=== PATIENT | female | born 1995 | race Caucasian/White ===

== ENCOUNTER 2018-04-09 17:56 | Inpatient (IN) ==
[2018-04-09] MEDS ORDERED: Sod Chloride 0.9% Inj 1,000 ML IV.CONT PRN (19:14)
[2018-04-09] MEDS ORDERED: fentaNYL Citrate Inj 100 MCG/2 ML Ampul IV.PUSH PRN ×2 (19:14)
[2018-04-09] MEDS ORDERED: Oxytocin 30 Units/500ml Premix 30 UNITS/500 ML BAG IV.SIG ONE (19:14)
[2018-04-09] MEDS ORDERED: Sodium Chlor 0.9% Inj 500 ML IV.SIG PRN (19:14)
[2018-04-09] MEDS ORDERED: Naloxone Inj 0.4 MG/ML Vial IV.PUSH PRN (19:14)
[2018-04-09] MEDS ORDERED: Citric Acid/Sodium Citrate Liq 30 ML UDC PO SCH (19:15)
--- NOTE | 2018-04-09 19:17 | P.HPOB ---
Patient Name: Matheus Morrison Date of : 89 Patient Status: Inpatient Attending Provider: Aisha Franco Date: 04/09/18 19:17 Initialization Date: 04/09/18 18:53 History of Present Illness [place] [facility] [place] Care Physician: Gonzales Kaba Chief Complaint: Elevated BP History of Present Illness: This 22 y/o female , EGA 39 1/7 wks presents to the OB ED from the office due to elevated BP. She also c/o headache and seeing spots. She denies abd pain. She has hx of pre eclampsia with her previous . +FM, No VB, occ ctx, No LOF. She has had PNC with Dr. Son. Weeks Gestation:: 39 Para: 1 : 2 Review of Systems All other systems reviewed negative except as stated in HPI PMFSH - History History Provided By: Patient - Medical History Medical History: Medical History (Last Updated 04/09/18 @ 19:10 by Aisha Franco DO) Herpes simplex History of hemorrhage, currently in third trimester - Surgical History Surgical History: Surgical History (Last Reviewed 04/09/18 @ 19:08 by Aisha Franco DO) Hx of dilation and curettage Hx of laparoscopy - Social History I have reviewed the patient's Social History: Yes - Tobacco History Smoking Status: Former smoker (Quit 2013) - Alcohol History How Often Do You Have a Drink Containing Alcohol: Never - Substance Use History Substance History: No History of Abuse - Travel History History of Recent Travel: No Medications and Allergies Allergies Allergy/AdvReac Type Severity Reaction Status Date / Time latex Allergy Intermediate rash Verified 04/06/18 15:39 Sulfa (Sulfonamide AdvReac Intermediate HIVES Verified 04/06/18 15:39 Antibiotics) Home Medications Medication Instructions Recorded Confirmed Type acyclovir 800 mg PO DAILY 04/06/18 04/09/18 History aspirin [Aspirin Low Dose] 81 mg PO DAILY 04/09/18 04/09/18 History Exam Vital signs: Vital Signs 04/09/18 18:14 04/09/18 18:21 04/09/18 18:35 Temperature 97.7 F Pulse Rate 80 98 H Respiratory Rate 18 Blood Pressure 131/94 H 121/90 04/09/18 18:40 Temperature Pulse Rate 102 H Respiratory Rate Blood Pressure 117/98 H Intake & Output 04/08/18 04/09/18 04/09/18 18:59 06:59 18:59 Weight 68.492 kg Narrative: GENERAL: Well-nourished, well-developed patient. SKIN: Warm and dry. HEAD: Normocephalic and atraumatic. EYES: No scleral icterus. No injection or drainage. ENT: No nasal drainage noted. Mucous membranes pink. Airway patent. NECK: Supple, trachea midline. No JVD. CARDIOVASCULAR: Regular rate and rhythm without murmurs, gallops, or rubs. RESPIRATORY: Breath sounds equal bilaterally. No accessory muscle use. ABDOMEN/GI: Abdomen soft, non-tender, bowel sounds present, no rebound, no guarding Gravid GENITOURINARY: External Genitalia: intact and normal in appearance BUS glands: [normal] Cervix: [post] Dilatation: [3] Effacement: [50] Station: [-2] Presentation: [vtx] Membranes: [intact] Uterine Contractions: [Irreg] FHT's: Category: [1] Baseline: [120] Reactive: [Yes] Variability: [Mod] Decels: [None] +accels EXTREMITIES: No cyanosis or edema. BACK: Nontender without obvious deformity. No CVA tenderness. NEUROLOGICAL: Awake and alert. Motor and sensory grossly within normal limits. Five out of 5 muscle strength in all muscle groups. Normal speech. Results - Labs Group B Strep: Negative Assessment and Plan - Diagnosis (1) Elevated blood pressure complicating in third trimester, antepartum Code(s): O16.3 - Unspecified maternal hypertension, third trimester Status: Acute (2) 39 weeks gestation of Code(s): Z3A.39 - 39 weeks gestation of Status: Acute (3) History of pre-eclampsia Code(s): Z87.59 - Personal history of other complications of , childbirth and the puerperium Status: Acute - Plan Induction of labor Discharge Plan - Physicians Team ED Provider: Aisha Franco Primary Care Provider: Gonzales Kaba - Rxs /Orders / Referrals /Forms Prescriptions: No Action acyclovir 800 mg Tablet 800 mg PO DAILY aspirin [Aspirin Low Dose] 81 mg Tablet,Delayed Release (Dr/Ec) 81 mg PO DAILY - Discharge Instructions Print Language: Pashto
[2018-04-09 20:05] LABS: Baso % (Auto) 0.3 % (0.0-2.0); Eos # (Auto) 0.1 th/mm3 (0.0-0.4); Eos % (Auto) 0.6 % (0.0-4.0); Hematocrit 33.8 % (35.0-46.0); Hemoglobin 11.9 gm/dL (11.6-15.3); Lymph # (Auto) 3.1 th/mm3 (1.0-4.8); Lymph % (Auto) 18.8 % (9.0-44.0); Mean Corpuscular HGB Conc 35.1 % (32.0-36.0); Mean Corpuscular Hemoglobin 30.3 pg (27.0-34.0); Mean Corpuscular Volume 86.1 fL (80.0-100.0); Mean Platelet Volume 9.8 fL (7.0-11.0); Mono # (Auto) 0.7 th/mm3 (0.0-0.9); Mono % (Auto) 4.5 % (0.0-8.0); Neut # (Auto) 12.5 th/mm3 (1.8-7.7); Neut % (Auto) 75.8 % (16.0-70.0); Platelet Count 213 th/mm3 (150-450); Red Blood Count 3.93 mil/mm3 (4.00-5.30); White Blood Count 16.5 th/mm3 (4.0-11.0)
[2018-04-09 20:13] LABS: Bacteria,Urine Rare /hpf; Bilirubin,Urine Negative (Negative); Clarity,Urine Clear (Clear); Color,Urine Yellow (Yellw/Straw); Glucose,Urine (UA) 50 mg/dL (Negative); Leukocyte Esterase,Urine Trace (Negative); Mucus,Urine Few /lpf (Occasional); Nitrite,Urine Negative (Negative); Specific Gravity,Urine 1.014 (1.002-1.035); Squamous Epithelial Cell,Urine 1 /hpf (0-5)
[2018-04-09 20:27] LABS: Albumin 2.8 g/dL (3.4-5.0); Anion Gap 10 meq/L (5-15); Aspartate Aminotransferase 10 U/L (15-37); Blood Urea Nitrogen 4 mg/dL (7-18); Calcium 8.2 mg/dL (8.5-10.1); Chloride 108 meq/L (98-107); Glomerular Filtration Rate Greater Than 89 mL/min (>89); Glucose,Random 99 mg/dL (74-106); Potassium 3.6 meq/L (3.5-5.1); Sodium 138 meq/L (136-145)
[2018-04-09 20:28] LABS: Alanine Aminotransferase 11 U/L (10-53)
[2018-04-09 20:30] LABS: Alkaline Phosphatase 183 U/L (45-117); Total Protein 6.6 g/dL (6.4-8.2)
[2018-04-09 20:50] LABS: Uric Acid 3.6 mg/dl (2.6-6.0)
--- NOTE | 2018-04-09 21:04 | P.OBGPN ---
Pt doing well. Contractions not as strong. SVE post /-3. Hx PP hemorrhage 3-4 hrs after delivery. Hx rapid delivery. Ctxs every 1-3 min. Will start Pit 4 AM if no cervical change on own.
[2018-04-10] MEDS ORDERED: Oxytocin 30 Units/500ml Premix 30 UNITS/500 ML BAG IV.SIG PRN ×2 (04:00→08:10)
--- NOTE | 2018-04-10 08:14 | P.OBGPN ---
Pt doing well. Feeling ctxs but not uncomfortable. SVE /-2. AROM with amniohook- clear. FHTs reactive, cat 1. Will cont Pitocin.
[2018-04-10] MEDS ORDERED: miSOPROStol 200 MCG Tablet ONE (11:09)
--- NOTE | 2018-04-10 11:37 | P.OBDELI ---
Weeks Gestation: 39 Patient Started Active Labor: No Medical Induction of Labor: Yes Medical Induction Start Date: 04/09/18 Artificial Rupture of Membrane: Yes Artificial ROM Date: 04/10/18 Anesthesia: None Episiotomy: none Vaginal Delivery: Normal, Spontaneous Presentation: Occiput anterior Nuchal Cord: x1 Delayed Cord Clamping (45 sec): Yes Placenta: Spontaneous delivery, Intact Laceration: 1 deg (left labial tear) Repair: Vicryl running Estimated blood loss (mL): 150 Infant: Female Female A Delivery Date: 04/10/18 Delivery Time: 11:04 Weight: 3.525 kg score (1 min): 8 score (5 min): 9 Additional Information: Delivered by Dr. Javed Supervised by Dr. Gant
[2018-04-10] MEDS ORDERED: Oxytocin 30 Units/500ml Premix 30 UNITS/500 ML BAG IV.SIG ONE (11:39)
[2018-04-10] MEDS ORDERED: Benzocaine 20% Top Spray 60 ML Can TOPICAL PRN (11:45)
[2018-04-10] MEDS ORDERED: Zolpidem Tartrate 5 MG Tablet PO PRN (11:45)
[2018-04-10] MEDS ORDERED: Witch Hazel 50%/Glyderin 12.5% 40 Pad Jar RECTAL PRN (11:45)
[2018-04-10] MEDS ORDERED: Oxytocin 30 Units/500ml Premix 30 UNITS/500 ML BAG IV.CONT PRN (11:45)
[2018-04-10] MEDS ORDERED: Naloxone Inj 0.4 MG/ML Vial IV.PUSH PRN (11:45)
[2018-04-10] MEDS ORDERED: Bisacodyl 10 MG Supp RECTAL PRN (11:45)
[2018-04-10] MEDS ORDERED: Diphtheria/Tetanus/Pertussis Vaccine Inj 0.5 ML Syringe IM ONE (16:00)
[2018-04-10] MEDS ORDERED: Measles/Mumps/Rubella Vaccine Inj 0.5 ML Vial SQ ONE (16:00)
[2018-04-10] MEDS: Senna/Docusate Sodium 8.6/50 MG Tablet PO SCH (21:00)
--- NOTE | 2018-04-11 07:31 | P.PNOB ---
Subjective Post day: 1 (doing well tolerating diet , ambulating ,bleeding decreased) Objective Vital Signs/I&O: Vital Signs 04/10/18 08:25 04/10/18 08:30 04/10/18 09:25 Temperature 98.2 F Pulse Rate 57 L 79 Respiratory Rate 18 Blood Pressure 120/68 137/99 H 04/10/18 09:30 04/10/18 09:55 04/10/18 10:00 Temperature 98.4 F Pulse Rate 71 Respiratory Rate 20 20 Blood Pressure 137/89 04/10/18 10:40 04/10/18 10:55 04/10/18 11:27 Temperature Pulse Rate 56 L 91 H 91 H Respiratory Rate Blood Pressure 133/92 H 133/90 04/10/18 11:28 04/10/18 11:30 04/10/18 11:45 Temperature 98.8 F Pulse Rate 81 Respiratory Rate 20 20 Blood Pressure 124/84 04/10/18 12:30 04/10/18 12:31 04/10/18 12:45 Temperature Pulse Rate 75 Respiratory Rate 18 20 Blood Pressure 133/91 H 04/10/18 13:00 04/10/18 14:05 04/10/18 20:00 Temperature 98.2 F 97.9 F Pulse Rate 80 75 84 Respiratory Rate 19 18 Blood Pressure 133/86 137/95 H 124/81 04/11/18 00:00 04/11/18 04:00 Temperature 97.9 F 97.8 F Pulse Rate 75 71 Respiratory Rate 18 18 Blood Pressure 121/69 122/82 Result Diagrams: 04/09/18 19:30 04/09/18 19:30 Objective Remarks: GENERAL: Well-nourished, well-developed patient. CARDIOVASCULAR: Regular rate and rhythm without murmurs, gallops, or rubs. RESPIRATORY: Breath sounds equal bilaterally. No accessory muscle use. ABDOMEN/GI: Abdomen soft, non-tender. Fundus: Firm, non-tender at umbilicus. GENITOURINARY: Light to moderate bleeding. EXTREMITIES: No cyanosis or edema, non-tender, without signs of DVT. Medications and IVs: Active Medications Acetaminophen (Tylenol) 650 mg PO Q4H PRN PRN Reason: PAIN SCALE 1 TO 2 Al Hydroxide/Mg Hydroxide (Milk Of Magnesia Liq) 30 ml PO Q12H PRN PRN Reason: Mild Constipation Benzocaine (Americaine 20% [place]) 1 spray TOPICAL Q4H PRN PRN Reason: For Perineum Discomfort Last Admin: 04/10/18 17:30 Dose: 1 spray Bisacodyl (Dulcolax Supp) 10 mg RECTAL DAILY PRN PRN Reason: SEVERE CONSITIPATION Oxytocin (Pitocin 30 Units/Ns 500 Ml Premix) 30 units in 500 mls @ 2 mls/hr IV.SIG TITRATE PRN; Protocol PRN Reason: For induction of labor Oxytocin (Pitocin 30 Units/Ns 500 Ml Premix) 30 units in 500 mls @ 100 mls/hr IV.CONT UNSCH PRN PRN Reason: Heavy bleeding Ibuprofen (Motrin) 800 mg PO Q8H PRN PRN Reason: For Cramping Last Admin: 04/11/18 05:48 Dose: 800 mg Lactulose (Lactulose Liq) 30 ml PO DAILY PRN PRN Reason: SEVERE CONSITIPATION Naloxone HCl (Narcan Inj) 0.1 mg IV.PUSH Q2M PRN PRN Reason: for opiate reversal Ondansetron HCl (Zofran Odt) 4 mg PO Q6H PRN PRN Reason: NAUSEA OR VOMITING Oxycodone/Acetaminophen (Percocet 5/325 Mg) 1 tab PO Q4H PRN PRN Reason: PAIN SCALE 3 TO 5 Oxycodone/Acetaminophen (Percocet 5/325 Mg) 2 tab PO Q4H PRN PRN Reason: PAIN SCALE 6 TO 10 Senna/Docusate Sodium (Marie-Colace) 1 tab PO BID [facility] Last Admin: 04/10/18 21:00 Dose: 1 tab Sennosides (Senokot) 17.2 mg PO Q12H PRN PRN Reason: Moderate Constipation Sodium Chloride (Ns Flush) 2 ml IV.FLUSH PRN PRN PRN Reason: FLUSH AFTER USING IV ACCESS Sodium Chloride (Ns Flush) 2 ml IV.FLUSH BID [facility] Last Admin: 04/10/18 21:01 Dose: 2 ml Witch Stephany/Glycerin (Tucks Pads) 1 applicatio RECTAL QID PRN PRN Reason: HEMORRHOIDS Last Admin: 04/10/18 17:30 Dose: 1 applicatio Zolpidem Tartrate (Ambien) 5 mg PO HS PRN PRN Reason: SLEEP Assessment and Plan - Diagnosis (1) Elevated blood pressure complicating in third trimester, antepartum Code(s): O16.3 - Unspecified maternal hypertension, third trimester Status: Acute (2) 39 weeks gestation of Code(s): Z3A.39 - 39 weeks gestation of Status: Acute (3) History of pre-eclampsia Code(s): Z87.59 - Personal history of other complications of , childbirth and the puerperium Status: Acute - Plan PPD 1 doing well begin progressive pp care
[2018-04-11] MEDS: Acetaminophen 325 MG Tablet PO PRN ×2 (09:11→15:22)
[2018-04-11] MEDS: Senna/Docusate Sodium 8.6/50 MG Tablet PO SCH (09:12)
== END 2018-04-11 16:16 | disposition home or self-care (01) | DRG 807 ==
LOC: HOBED 17:56 → H2E 19:07 → H1EA 04-10 14:06
PROVIDERS: ADMIT Obstetrics & Gynecology; ATTEND Obstetrics & Gynecology
CPT/HCPCS: 59025; 80053; 81001; 84550; 85025; 86850; 86900; 86901; 90707; 99285; J2590; J3010; J7120